=== PATIENT | male | born 1935 | race Caucasian/White ===

== ENCOUNTER 2016-07-17 16:21 | Emergency (ER) | payer OTHER ==
[~2016-07-17] VITALS: Ht 170.2 cm; Wt 77.1 kg
[2016-07-17 17:04] VITALS: BP 108/74; PULSE 71; RESP 18; TEMP 98.9; O2SAT 95
[2016-07-17 17:48] LABS: BASOPHILS % (AUTO) 0.4 % (0.0-2.0); EOSINOPHILS % (AUTO) 0.6 % (0.0-4.0); HEMATOCRIT 45.4 % (36-54); HEMOGLOBIN 15.1 g/dL (14.0-18.0); LYMPHOCYTES # (AUTO) 1.3 K/uL (1.0-5.5); LYMPHOCYTES % (AUTO) 19.4 % (20.5-51.5); MEAN CORPUSCULAR HEMOGLOBIN 31 pg (27-31); MEAN CORPUSCULAR HGB CONC 33 % (32-36); MEAN CORPUSCULAR VOLUME 92 fL (79.0-98.0); MONOCYTES # (AUTO) 0.9 K/uL (0.0-1.0); MONOCYTES % (AUTO) 13.3 % (1.7-9.3); NEUTROPHILS # (AUTO) 4.6 K/uL (1.8-7.7); NEUTROPHILS % (AUTO) 66.3 % (40.0-70.0); PLATELET COUNT (AUTO) 219 K/uL (130-430); RED BLOOD CELL COUNT(AUTO) 4.92 MIL/uL (4.2-6.2); RED CELL DISTRIBUTION WIDTH 12.5 % (9.0-15.0); WHITE BLOOD COUNT (AUTO) 6.8 K/uL (4.8-10.8)
--- NOTE | 2016-07-17 18:01 | NUR ---
BROUGHT BACK TO BED #3 AND REPORT GIVEN TO LUCERO
[2016-07-17 18:05] LABS: BILIRUBIN,URINE NEGATIVE (NEGATIVE); BLOOD, URINE 3+ (NEGATIVE); CLARITY/URINE CLEAR (CLEAR); COLOR,URINE YELLOW (YELLOW); GLUCOSE,URINE NEGATIVE (NEGATIVE); KETONES,URINE NEGATIVE (NEGATIVE); LEUKOCYTE ESTERASE ,URINE NEGATIVE (NEGATIVE); NITRITE, URINE POSITIVE (NEGATIVE); PROTEIN URINE 3+ (NEGATIVE)
[2016-07-17 18:12] LABS: ANION GAP 7 (5-15); CALCIUM 9.3 mg/dL (8.4-11.0); CHLORIDE 99 mmol/L (98-107); CREATININE 1.36 mg/dL (0.55-1.30); GLUCOSE 103 mg/dL (70-99); POTASSIUM 3.7 mmol/L (3.5-5.1); SODIUM SERUM 136 mmol/L (136-145); UREA NITROGEN, BLOOD 24 mg/dL (8-21)
[2016-07-17 18:13] LABS: PROTHROMBIN TIME 11.2 SECS (9.5-12.5)
[2016-07-17 18:17] LABS: ALANINE AMINOTRANSFERASE 37 U/L (12-78); ALBUMIN 4.1 g/dL (3.4-4.8); AMYLASE 44 U/L (0-100); ASPARTATE AMINOTRANSFERASE 23 U/L (10-37); LIPASE 102 U/L (73-393); TOTAL BILIRUBIN 0.6 mg/dL (0.0-1.0); TOTAL PROTEIN, SERUM 7.9 g/dL (6.4-8.3)
--- NOTE | 2016-07-17 18:23 | NUR ---
Pt c/o lower abd pain, urinary discomfort with buring on urination and dark red runny stool this morning. Per , pt has been sick past 2 weeks with on/off fever. Labs and UA sent
[2016-07-17 18:26] LABS: BACTERIA,URINE FEW /HPF (None Seen); FINE GRANULAR CASTS,URINE 0-10 /LPF (None Seen); MUCUS,URINE 1+ /LPF (None Seen)
--- NOTE | 2016-07-17 18:30 | NUR ---
Dr. Hooper at bedside for evaluation
--- NOTE | 2016-07-17 18:32 | NUR ---
Pt states that earlier today he had mucus and clots with blood that came out urethra. Urinary frequency and is wearing depends d/t incontience following the frequency. Is seeing Dr. Valentin Hooper urologist for urinary workups.
[2016-07-17] MEDS ORDERED: cefTRIAXone 1 GM IVPB PREMIX 50 ML IV ONE (18:45)
[2016-07-17] MEDS ORDERED: NACL 0.9% 1,000 ML IV ONE (18:45)
--- NOTE | 2016-07-17 18:57 | NUR ---
IVF and IVPB infusing to left hand with no s/x of infiltration at this time.
--- NOTE | 2016-07-17 19:13 | NUR ---
Report given to ROSALVA Lozano
--- NOTE | 2016-07-17 19:49 | NUR ---
Pt resting in gurney, in no acute distress. Family at bedside. Pt respirations even and unlabored. Pt denies any needs at this time. Will continue to monitor.
[2016-07-17 20:28] VITALS: BP 128/82; PULSE 71; RESP 16; TEMP 98.1; O2SAT 97
--- NOTE | 2016-07-17 20:28 | NUR ---
Patient given written and verbal discharge instructions and verbalizes understanding. ER MD discussed with patient the results and treatment provided. Patient in stable condition. ID arm band removed. IV catheter removed intact and dressing applied, no active bleeding. Rx of Cipro and Flagyl given. Patient educated on pain management and to follow up with PMD. Pain Scale 0/10. Opportunity for questions provided and answered.
== END 2016-07-17 20:28 | disposition home or self-care (01) ==
LOC: SED 16:21
DX: N39.0 Urinary tract infection, site not specified (principal); K57.92 Diverticulitis of intestine, part unspecified, without perforation or abscess without bleeding; N40.0 Benign prostatic hyperplasia without lower urinary tract symptoms; Z98.890 Other specified postprocedural states
CPT/HCPCS: 36415; 74176; 80053; 81000; 81003; 82150; 83690; 85025; 85610; 85730; 87040; 87086; 96361; 96374; 99285; J0696; J7030